=== PATIENT | male | born 1990 | race Caucasian/White ===

== ENCOUNTER 2017-05-03 16:03 | Inpatient (IN) | payer OTHER ==
[~2017-05-03] VITALS: Ht 175.3 cm; Wt 83.9 kg
[2017-05-03] MEDS ORDERED: ONDANSETRON HCL/PF 4 MG/2 ML VIAL IVP ONE (18:00)
[2017-05-03] MEDS ORDERED: MORPHINE SULFATE INJ 2 MG/ML DISP.SYRIN IV ONE (18:00)
[2017-05-03] MEDS ORDERED: IV NS 0.9% 1,000 ML BAG IV ONE (18:00)
[2017-05-03] MEDS ORDERED: VANCOMYCIN 1 GM in IV D5W 250 ML IV ONE (18:00)
[2017-05-03] MEDS ORDERED: ONDANSETRON HCL/PF 4 MG/2 ML VIAL ONE ×2 (18:19→18:33)
[2017-05-03] MEDS ORDERED: MORPHINE SULFATE INJ 4 MG/ML DISP.SYRIN ONE ×2 (18:19→18:33)
[2017-05-03 18:22] LABS: BASOPHILS # (AUTO) 0.1 /CMM (0.0-0.2); BASOPHILS % (AUTO) 0.5 % (0.0-2.0); EOSINOPHILS # (AUTO) 0.1 /CMM (0.0-0.7); EOSINOPHILS % (AUTO) 0.5 % (0.0-6.0); HEMATOCRIT 43 % (39-51); HEMOGLOBIN 15.3 g/dL (13.5-17.5); LYMPHOCYTES # (AUTO) 2.1 /CMM (0.8-4.8); LYMPHOCYTES % (AUTO) 14.8 % (20.0-44.0); MEAN CORPUSCULAR HEMOGLOBIN 29 PG (26.0-33.0); MEAN CORPUSCULAR HGB CONC 36 g/dl (31.0-36.0); MEAN CORPUSCULAR VOLUME 81 fL (80-96); MONOCYTES # (AUTO) 0.9 /CMM (0.1-1.30); MONOCYTES % (AUTO) 5.9 % (2.0-12.0); NEUTROPHILS # (AUTO) 11.3 /CMM (1.8-8.9); NEUTROPHILS % (AUTO) 78.3 % (43.0-81.0); PLATELET COUNT (AUTO) 225 /CMM (150-450); RED BLOOD CELL COUNT(AUTO) 5.28 MIL/uL (4.5-6.0); WHITE BLOOD COUNT (AUTO) 14.5 K/uL (4.3-11.0)
--- NOTE | 2017-05-03 18:30 | NUR ---
PT REFUSED MORPHINE AND ZOFRAN. BIOMETRICS ANALYST MADE AWARE. Addendum: 05/03/17 at 1843 by [facility] WASTED/RETURNED.
[2017-05-03 18:35] LABS: INR 1.01 (0.85-1.15)
[2017-05-03] MEDS ORDERED: IOHEXOL-300 100 ML VIAL IV ONE (18:41)
[2017-05-03] MEDS ORDERED: IV NS 0.9% 250 ML IV ONE (18:41)
--- NOTE | 2017-05-03 18:43 | NUR ---
PT NOW WANTS THE MEDS PER [employer]- ORDERS CARRIED OUT. PT MEDICATED ORDERED.
[2017-05-03 19:42] LABS: CALCIUM, SERUM 9.2 mg/dL (8.5-10.1); CREATININE 1.2 mg/dL (0.6-1.3); POTASSIUM 4.4 mmol/L (3.5-5.1)
--- NOTE | 2017-05-03 21:15 | NUR ---
REPORT GIVEN TO CRISTOBAL ALCAZAR FOR MS [id number].
[2017-05-03] MEDS ORDERED: IV NS 0.9% 1,000 ML IV PRN ×2 (21:20→21:30)
[2017-05-03] MEDS ORDERED: MAGNESIUM HYDROXIDE 30 ML UDC PO PRN ×3 (21:30→22:00)
[2017-05-03] MEDS ORDERED: HYDROCODONE/APAP 5/325MG 1 EACH TABLET PO PRN ×2 (21:30→22:00)
[2017-05-03] MEDS ORDERED: ONDANSETRON HCL/PF 4 MG/2 ML VIAL IVP PRN ×3 (21:30→22:00)
[2017-05-03] MEDS ORDERED: Z GUARD REMEDY 2 OZ OINT TP PRN ×2 (21:30→21:45)
[2017-05-03] MEDS ORDERED: MAG HYDROX/AL HYDROX/SIMETH 30 ML UDC PO PRN ×3 (21:30→22:00)
[2017-05-03] MEDS ORDERED: MORPHINE SULFATE INJ 2 MG/ML DISP.SYRIN IV PRN ×2 (21:30→21:45)
[2017-05-03] MEDS ORDERED: ACETAMINOPHEN 325 MG TABLET PO PRN ×3 (21:30→22:00)
[2017-05-03] MEDS ORDERED: ZOLPIDEM TARTRATE 5 MG TABLET PO PRN ×3 (21:30→22:00)
[2017-05-03 21:40] VITALS: BP 112/58
[2017-05-03 21:45] VITALS: BP 112/58
[2017-05-03] MEDS: MORPHINE SULFATE INJ 4 MG/ML DISP.SYRIN IV PRN (23:23)
[2017-05-04] MEDS ORDERED: PIPERACILLIN /TAZOBACTAM 3.375 G in IV D5W 50 ML IV SCH ×4
[2017-05-04] MEDS ORDERED: PIPERACILLIN /TAZOBACTAM 3.375 G VIAL IV ONE ×2 (00:59→05:51)
[2017-05-04] MEDS: PIPERACILLIN /TAZOBACTAM 3.375 G in IV D5W 50 ML IV SCH ×5 (01:01→23:51)
[2017-05-04] MEDS: HYDROCODONE/APAP 5/325MG 1 EACH TABLET PO PRN ×2 (01:20→10:51)
[2017-05-04] MEDS ORDERED: VANCOMYCIN 1 GM in IV D5W 250 ML IV ONE (02:30)
[2017-05-04 06:30] LABS: CALCIUM, SERUM 8.5 mg/dL (8.5-10.1); CREATININE 1.1 mg/dL (0.6-1.3); POTASSIUM 4.1 mmol/L (3.5-5.1)
[2017-05-04 06:36] LABS: BASOPHILS % (AUTO) 0.3 % (0.0-2.0); EOSINOPHILS % (AUTO) 0.3 % (0.0-6.0); HEMATOCRIT 39 % (39-51); HEMOGLOBIN 13.4 g/dL (13.5-17.5); LYMPHOCYTES # (AUTO) 2.3 /CMM (0.8-4.8); LYMPHOCYTES % (AUTO) 16.5 % (20.0-44.0); MEAN CORPUSCULAR HEMOGLOBIN 29 PG (26.0-33.0); MEAN CORPUSCULAR HGB CONC 34 g/dl (31.0-36.0); MEAN CORPUSCULAR VOLUME 83 fL (80-96); MONOCYTES # (AUTO) 0.9 /CMM (0.1-1.30); MONOCYTES % (AUTO) 6.8 % (2.0-12.0); NEUTROPHILS # (AUTO) 10.7 /CMM (1.8-8.9); NEUTROPHILS % (AUTO) 76.1 % (43.0-81.0); PLATELET COUNT (AUTO) 195 /CMM (150-450); RDW COEFFICIENT OF VARIATION 13.4 (11.5-15.0); RED BLOOD CELL COUNT(AUTO) 4.68 MIL/uL (4.5-6.0)
--- NOTE | 2017-05-04 06:45 | NUR ---
MS RN NOTES AWAKE & RESPONSIVE. NOT IN ANY DISTRESS. NO SOB NOTED. DENIES ANY PAIN OR DISCOMFORT AT THIS TIME. WITH IV-HL PATENT & INTACT. MONITORED ACCORDINGLY. CALL LIGHT WITHIN REACH. BED IN LOWEST POSITION. SR UP X 2 FOR SAFETY. WILL ENDORSE TO NEXT SHIFT.
[2017-05-04] MEDS: PANTOPRAZOLE 40 MG TABLET.DR PO SCH (07:26)
[2017-05-04] MEDS ORDERED: FEE PK DOSING 1 MIN EA MC ONE (07:32)
[2017-05-04 08:00] VITALS: BP 99/56
--- NOTE | 2017-05-04 08:00 | NUR ---
M/S RN - AM Assessment Patient in bed awake, A/O x 4, afebrile, c/o perianal pain NE=8/10 but refused to be medicated. Skin is intact except for skin irritation around the anus, noted with swelling, redness and tenderness, no discharge seen at this time. All needs anticipated and met. Will continue with current treatment plan.
[2017-05-04] MEDS: VANCOMYCIN 1 GM in IV D5W 250 ML IV SCH ×3 (08:24→23:51)
[2017-05-04] MEDS: IV NS 0.9% 1,000 ML IV PRN (08:25)
[2017-05-04] MEDS: MORPHINE SULFATE INJ 4 MG/ML DISP.SYRIN IV PRN (12:54)
[2017-05-04] MEDS ORDERED: LIDOCAINE 2% JEL 5 ML TUBE TP PRN (14:00)
[2017-05-04 16:00] VITALS: BP 97/58
--- NOTE | 2017-05-04 17:30 | NUR ---
M/S RN - Notes Patient in no acute distress, perianal pain managed with [place] 1 tab and Morphine IV as ordered. Patient to be NPO after midnight for Incision and drainage of perianal abscess tomorrow. Consent signed by the patient. Advised to apply warm compress to perianal area. Continue IVF to maintain hydration and IV antibiotics for perianal abscess. All needs attended and met. Will continue with current medical management.
[2017-05-04 20:00] VITALS: BP 113/63
[2017-05-05] VITALS (8 sets, daily range): BP systolic 103–108; BP diastolic 50–68
[2017-05-05] MEDS: HYDROCODONE/APAP 5/325MG 1 EACH TABLET PO PRN ×2 (01:17→01:18)
[2017-05-05] MEDS: PIPERACILLIN /TAZOBACTAM 3.375 G in IV D5W 50 ML IV SCH ×4 (05:44→23:58)
--- NOTE | 2017-05-05 06:27 | NUR ---
MS RN NOTES AWAKE & RESPONSIVE. NOT IN ANY DISTRESS. NO SOB NOTED. DENIES ANY PAIN OR DISCOMFORT AT THIS TIME. KEPT ON NPO P MN WITH IVF INFUSING WELL. MONITORED ACCORDINGLY. CALL LIGHT WITHIN REACH. BED IN LOWEST POSITION. SR UP X 2 FOR SAFETY. WILL ENDORSE TO NEXT SHIFT.
[2017-05-05 06:35] LABS: CALCIUM, SERUM 8.6 mg/dL (8.5-10.1); CREATININE 1.5 mg/dL (0.6-1.3); POTASSIUM 4.3 mmol/L (3.5-5.1)
[2017-05-05] MEDS: PANTOPRAZOLE 40 MG TABLET.DR PO SCH (07:30)
--- NOTE | 2017-05-05 07:45 | NUR ---
REPORT RECEIVED AT THE BEDSIDE. PATIENT IS SLEEPING. NO SOB OR DISTRESS NOTED AT THIS TIME. PATIENT DOES NOT APPEAR TO BE IN PAIN, NO FACIAL GRIMACE NOTED. BED IN A LOW POSITION, CALL LIGHT WITHIN PATIENT REACH. WILL CONTINUE TO MONITOR.
[2017-05-05] MEDS: VANCOMYCIN 1 GM in IV D5W 250 ML IV SCH ×2 (07:55→16:17)
[2017-05-05] MEDS ORDERED: FENTANYL PF 100MCG/2ML AMPUL ONE ×2 (11:34→11:52)
[2017-05-05] MEDS ORDERED: MIDAZOLAM HCL 2 MG/2ML VIAL ONE (11:34)
[2017-05-05] MEDS ORDERED: LIDOCAINE 1%-EPI 1:100,000 20 ML VIAL ONE (11:46)
--- NOTE | 2017-05-05 12:53 | NUR ---
PT BACK FROM SURGERY. VITALS STABLE. PATIENT REPORTS LITTLE TO NO PAIN.
[2017-05-05] MEDS: LACTOBACILLUS RHAMNOSUS GG 1 EACH CAP.SPRINK PO SCH (16:17)
--- NOTE | 2017-05-05 18:53 | NUR ---
NO SIGNIFICANT CHANGES IN PATIENT CONDITION THROUGHOUT THE SHIFT. NO SOB OR DISTRESS NOTED AT THIS TIME. PATIENT IS SLEEPING AND DOES NOT APPEAR TO BE IN PAIN, NO FACIAL GRIMACE NOTED. BED IN LOW POSITION, CALL LIGHT WITHIN PATIENT REACH. WILL ENDORSE FOR XOCHITL.
--- NOTE | 2017-05-05 19:30 | NUR ---
MS RN NOTES RECEIVED PT IN BED, AWAKE, A/O X 4. VERBALLY RESPONSIVE. NO DISTRESS, NOR SOB NOTED AT THIS TIME RESPIRATION IS EVEN AND UNLABORED. IV SITE ON LFA INTACT AND PATENT, NO S/S OF INFILTRATION NOTED, IVF INFUSING WELL. DENIES ANY PAIN OR DISCOMFORT AT THIS TIME. ALL NEEDS ATTENDED AND MET. KEPT COMFORTABLE. SAFETY PRECAUTIONS OBSERVED. CALL LIGHT WITHIN REACH. WILL CONTINUE TO MONITOR.
[2017-05-06] MEDS: VANCOMYCIN 1 GM in IV D5W 250 ML IV SCH ×2 (01:07→08:00)
[2017-05-06] MEDS: IV NS 0.9% 1,000 ML IV PRN (05:26)
[2017-05-06] MEDS: PIPERACILLIN /TAZOBACTAM 3.375 G in IV D5W 50 ML IV SCH ×2 (05:26→11:29)
--- NOTE | 2017-05-06 06:41 | NUR ---
MS RN NOTES PT IN BED, RESTING COMFORTABLY, AROUSES EASILY. A/O X 4. VERBALLY RESPONSIVE. NO DISTRESS, NOR SOB NOTED AT THIS TIME RESPIRATION IS EVEN AND UNLABORED. IV SITE ON LFA INTACT AND PATENT, NO S/S OF INFILTRATION NOTED, IVF INFUSING WELL. NO C/O OF ANY PAIN OR DISCOMFORT. ALL NEEDS ATTENDED AND MET. KEPT COMFORTABLE. SAFETY PRECAUTIONS OBSERVED. NO SIGNIFICANT CHANGES NOTED. CALL LIGHT WITHIN REACH. WILL ENDORSE TO NEXT SHIFT FOR XOCHITL.
[2017-05-06 07:16] LABS: BASOPHILS % (AUTO) 0.4 % (0.0-2.0); EOSINOPHILS # (AUTO) 0.3 /CMM (0.0-0.7); EOSINOPHILS % (AUTO) 2.6 % (0.0-6.0); HEMATOCRIT 38 % (39-51); HEMOGLOBIN 13.2 g/dL (13.5-17.5); LYMPHOCYTES # (AUTO) 2.3 /CMM (0.8-4.8); LYMPHOCYTES % (AUTO) 23.4 % (20.0-44.0); MEAN CORPUSCULAR HEMOGLOBIN 29 PG (26.0-33.0); MEAN CORPUSCULAR HGB CONC 34 g/dl (31.0-36.0); MEAN CORPUSCULAR VOLUME 83 fL (80-96); MONOCYTES # (AUTO) 0.8 /CMM (0.1-1.30); MONOCYTES % (AUTO) 8.2 % (2.0-12.0); NEUTROPHILS # (AUTO) 6.5 /CMM (1.8-8.9); NEUTROPHILS % (AUTO) 65.4 % (43.0-81.0); PLATELET COUNT (AUTO) 185 /CMM (150-450); RDW COEFFICIENT OF VARIATION 13.6 (11.5-15.0); RED BLOOD CELL COUNT(AUTO) 4.61 MIL/uL (4.5-6.0); WHITE BLOOD COUNT (AUTO) 9.9 K/uL (4.3-11.0)
[2017-05-06] MEDS: PANTOPRAZOLE 40 MG TABLET.DR PO SCH (07:30)
[2017-05-06 07:44] LABS: CALCIUM, SERUM 8.2 mg/dL (8.5-10.1); CREATININE 1.5 mg/dL (0.6-1.3); MAGNESIUM 2.1 mg/dL (1.8-2.4); PHOSPHORUS 4.1 mg/dL (2.5-4.9); POTASSIUM 3.9 mmol/L (3.5-5.1)
[2017-05-06 08:00] VITALS: BP 97/44
[2017-05-06] MEDS: LACTOBACILLUS RHAMNOSUS GG 1 EACH CAP.SPRINK PO SCH (08:01)
[2017-05-06] MEDS ORDERED: DAKINS QUARTER STRENGTH (0.125%) 480 ML BOTTLE TOP SCH (09:00)
[2017-05-06] MEDS ORDERED: DOCU-141 PO (14:06)
[2017-05-06] MEDS ORDERED: SODI473S8 TOP (14:06)
[2017-05-06] MEDS ORDERED: CEPH-570 PO (14:06)
--- NOTE | 2017-05-06 15:15 | NUR ---
DISCHARGE INSTRUCTIONS GIVEN TO THE PATIENT AND ABLE TO UNDERSTAND. PATIENT UNDERSTANDS WOUND TREATMENT AND MD FOLLOWUP. ALL BELONGINGS ACCOUNTED FOR AND LIST SIGNED. IV DISCONNECTED AND PRESSURE APPLIED, NO BLEEDING NOTED AT THE SITE. FLU SHOT NOT GIVEN PATIENT REFUSED. PATIENT LEFT IN STABLE CONDITION, VIA PRIVATE CAR, WITH FRIEND. NO SOB OR DISTRESS. DISCHARGED HOME.
[2017-05-06] MEDS ORDERED: CEPHALEXIN MONOHYDRATE 250 MG CAPSULE PO SCH (18:00)
== END 2017-05-06 15:15 | disposition home or self-care (01) | DRG 226 ==
LOC: ER 16:11 → MEDSG2 23:08
PROVIDERS: ADMIT Nurse Practitioner Acute Care; ATTEND Nurse Practitioner Acute Care
PROC: 0D9QXZZ Drainage of Anus, External Approach (ICD-10-PCS; principal; 2017-05-05 10:35)
DX: K61.0 Anal abscess (principal); E66.9 Obesity, unspecified; D72.829 Elevated white blood cell count, unspecified; F17.210 Nicotine dependence, cigarettes, uncomplicated; K40.90 Unilateral inguinal hernia, without obstruction or gangrene, not specified as recurrent; K59.00 Constipation, unspecified; Z68.27 Body mass index [BMI] 27.0-27.9, adult
CPT/HCPCS: 36415; 72193-TC; 80048-TC; 80202-TC; 83735-TC; 84100-TC; 85025-TC; 85730-TC; 87070-TC; 87075-TC; 87081-TC; 87186-TC; A4217; A4606; A6253; A6402; A6403; J2250; J2270; J2405; J2543; J3010; J3370; J3490; J7030; J7050; J7060; Q9967; Z7610

== ENCOUNTER 2021-08-07 16:14 | Emergency (ER) | payer OTHER ==
[~2021-08-07] VITALS: Ht 175.3 cm; Wt 86.2 kg
[~2021-08-07 16:14] MED LIST: CEPH-570 PO; DOCU-141 PO; SODI473S8 TOP
--- NOTE | 2021-08-07 16:30 | NUR ---
URINE COLLECTED AND SENT TO LAB
--- NOTE | 2021-08-07 16:30 | NUR ---
BIBS C/O "MY URINE SMELLS BAD" [id number], DENIES PAIN. PT IS A&OX4, BREATHING EVEN AND UNLABORED ON RA. PT IS ABLE TO AMBULATE W/O ASSISTANCE. PT DENIES ANY PAIN.
--- NOTE | 2021-08-07 16:55 | NUR ---
DR ZACARIAS SEEING PATIENT
[2021-08-07] MEDS ORDERED: DOXY100C2 PO (17:11)
[2021-08-07] MEDS ORDERED: CEFTRIAXONE 500 MG VIAL ONE (17:18)
[2021-08-07] MEDS ORDERED: DOXYCYCLINE HYCLATE (100 MG) 100 MG TABLET ONE (17:18)
[2021-08-07] MEDS ORDERED: METRONIDAZOLE 500 MG TABLET ONE (17:19)
[2021-08-07] MEDS ORDERED: LIDOCAINE /MPF 1% VIAL 5 ML VIAL ONE (17:21)
[2021-08-07] MEDS ORDERED: CEFTRIAXONE 500 MG VIAL IM ONE (17:30)
[2021-08-07] MEDS ORDERED: METRONIDAZOLE 500 MG TABLET PO ONE (17:30)
[2021-08-07] MEDS ORDERED: DOXYCYCLINE HYCLATE (100 MG) 100 MG TABLET PO ONE (17:30)
[2021-08-07 17:36] VITALS: BP 122/76
--- NOTE | 2021-08-07 17:36 | NUR ---
Patient discharged to home in stable condition. Written and verbal after care instructions given. Patient verbalizes understanding of instruction.
== END 2021-08-07 17:37 | disposition home or self-care (01) ==
LOC: ER 16:20
DX: Z11.3 Encounter for screening for infections with a predominantly sexual mode of transmission (principal); N36.8 Other specified disorders of urethra; F17.200 Nicotine dependence, unspecified, uncomplicated; Z79.899 Other long term (current) drug therapy
CPT/HCPCS: 87491; 87591; 96372; 99283; J0696; J3490

== ENCOUNTER 2022-05-23 17:11 | Emergency (ER) | payer MEDICAID, OTHER ==
[~2022-05-23] VITALS: Ht 175.3 cm; Wt 77.1 kg
[~2022-05-23 17:11] MED LIST changes: +DOXY100C2 PO
--- NOTE | 2022-05-23 17:30 | NUR ---
BIBSELF CO HEMORRHOIDS NOT IN CR DISTRESS. AMBULATORY AOX4.COSCIOUS COHERENT. PUT ON GOWN. EMD AT BEDSIDE . AWAITING FOR ORDRES
[2022-05-23] MEDS ORDERED: DOXYCYCLINE HYCLATE (100 MG) 100 MG TABLET PO ONE (18:30)
[2022-05-23] MEDS ORDERED: CEFTRIAXONE 500 MG VIAL IM ONE (18:30)
[2022-05-23] MEDS ORDERED: DOXY100C2 PO (18:31)
[2022-05-23] MEDS ORDERED: CEFTRIAXONE 1 G VIAL ONE (18:38)
[2022-05-23] MEDS ORDERED: DOXYCYCLINE HYCLATE (100 MG) 100 MG TABLET ONE (18:39)
[2022-05-23] MEDS ORDERED: LIDOCAINE HCL/PF 1% 30 ML SDV ONE (18:40)
[2022-05-23 19:15] VITALS: BP 110/80
--- NOTE | 2022-05-23 19:16 | NUR ---
Patient discharged to home in stable condition. Written and verbal after care instructions given. Patient verbalizes understanding of instruction.
== END 2022-05-23 19:16 | disposition home or self-care (01) ==
LOC: ER 17:11
DX: Z20.2 Contact with and (suspected) exposure to infections with a predominantly sexual mode of transmission (principal); F17.200 Nicotine dependence, unspecified, uncomplicated; Z79.899 Other long term (current) drug therapy
CPT/HCPCS: 99283; 96372; J0696; J3490

== ENCOUNTER 2023-02-12 13:51 | Emergency (ER) | payer MEDICAID ==
[~2023-02-12] VITALS: Ht 177.8 cm; Wt 78.5 kg
[2023-02-12] MEDS ORDERED: VALA100026 PO (14:36)
[2023-02-12 16:34] VITALS: BP 138/69; TEMP 98.3; O2SAT 97
== END 2023-02-12 14:53 | disposition home or self-care (01) ==
LOC: ER 13:53
DX: R21 Rash and other nonspecific skin eruption (principal); F17.200 Nicotine dependence, unspecified, uncomplicated; Z79.899 Other long term (current) drug therapy; Z60.2 Problems related to living alone

== ENCOUNTER 2023-12-23 00:03 | Emergency (ER) | payer MEDICAID ==
[~2023-12-23] VITALS: Ht 175.3 cm; Wt 86.2 kg
[~2023-12-23 00:03] MED LIST changes: +VALA100026 PO
[2023-12-23 03:08] LABS: APPEARANCE,URINE CLEAR (CLEAR); BILIRUBIN,URINE NEGATIVE (NEGATIVE); BLOOD, URINE NEGATIVE Ery/uL (NEGATIVE); COLOR,URINE YELLOW (YELLOW); KETONES,URINE NEGATIVE (NEGATIVE); LEUKOCYTE ESTERASE ,URINE NEGATIVE (NEGATIVE); NITRITE, URINE NEGATIVE (NEGATIVE); PH,URINE 6.5 (5.0-8.0); PROTEIN,URINE NEGATIVE (NEGATIVE); UGLUCOSE NEGATIVE (NEGATIVE); UROBILINOGEN,URINE 0.2 EU/dL (0.2)
[2023-12-23] MEDS ORDERED: DOXY100C2 PO (03:21)
[2023-12-23] MEDS ORDERED: CEFTRIAXONE 1 G VIAL ONE (03:31)
[2023-12-23] MEDS ORDERED: LIDOCAINE /MPF 1% VIAL 5 ML VIAL ONE (03:31)
[2023-12-23] MEDS ORDERED: DOXYCYCLINE HYCLATE (100 MG) 100 MG TABLET ONE (03:32)
[2023-12-23] MEDS: DOXYCYCLINE HYCLATE (100 MG) 100 MG TABLET PO ONE (03:39)
[2023-12-23] MEDS: CEFTRIAXONE 1 G VIAL IM ONE (03:39)
[2023-12-23 03:41] VITALS: BP 132/80; TEMP 98; O2SAT 98
[2023-12-26 06:11] LABS: CHLAMYDIA TRACHOMATIS NAA Negative (Negative); NEISSERIA GONORRHOEAE NAA Negative (Negative)
== END 2023-12-23 03:42 | disposition home or self-care (01) ==
LOC: ER 00:06
DX: R30.0 Dysuria (principal); R21 Rash and other nonspecific skin eruption; F17.210 Nicotine dependence, cigarettes, uncomplicated; Z20.2 Contact with and (suspected) exposure to infections with a predominantly sexual mode of transmission; Z79.624 Long term (current) use of inhibitors of nucleotide synthesis; Z60.2 Problems related to living alone
CPT/HCPCS: 99283; 96372; 81003; 87491; 87591; J0696; J3490